=== PATIENT | female | born 1985 | race Caucasian/White ===

== ENCOUNTER 2017-08-24 19:45 | Observation (INO) | payer OTHER ==
[~2017-08-24] VITALS: Ht 170.2 cm; Wt 82.6 kg
[2017-08-24 20:47] VITALS: BP_SYST 141
== END 2017-08-24 20:40 | disposition home or self-care (01) ==
LOC: SPU 19:45
PROVIDERS: ADMIT Obstetrics & Gynecology; ATTEND Obstetrics & Gynecology
DX: O62.9 Abnormality of forces of labor, unspecified (principal); Z3A.39 39 weeks gestation of pregnancy
CPT/HCPCS: G0378

== ENCOUNTER 2017-08-25 01:30 | Inpatient (IN) | payer OTHER ==
[~2017-08-25] VITALS: Ht 172.7 cm; Wt 83.0 kg
[2017-08-25] MEDS ORDERED: LR 1,000 ML IV ONE (01:45)
[2017-08-25] MEDS ORDERED: OXYTOCIN/NORMAL SALINE 1,000 ML IV SCH ×2 (01:45→12:02)
[2017-08-25] MEDS ORDERED: TERBUTALINE SULFATE 1 MG/ML VIAL SUBCUT ONE (01:45)
[2017-08-25] MEDS ORDERED: NALBUPHINE HCL 10 MG/ML AMP IVP PRN (01:45)
[2017-08-25] MEDS ORDERED: LR 1,000 ML IV SCH (01:45)
[2017-08-25 01:54] VITALS: BP_SYST 146
[2017-08-25 02:14] LABS: BASOPHILS % (AUTO) 0.1 % (0.0-2.0); EOSINOPHILS # (AUTO) 0.2 K/uL (0.0-0.4); EOSINOPHILS % (AUTO) 1.3 % (0.0-4.0); HEMATOCRIT 39.3 % (36-48); HEMOGLOBIN 13.5 g/dL (12.0-16.0); LYMPHOCYTES # (AUTO) 1.5 K/uL (1.0-5.5); LYMPHOCYTES % (AUTO) 10.9 % (20.5-51.5); MEAN CORPUSCULAR HEMOGLOBIN 32 pg (27-31); MEAN CORPUSCULAR HGB CONC 34 % (32-36); MEAN CORPUSCULAR VOLUME 94 fL (79.0-98.0); MONOCYTES % (AUTO) 7.2 % (1.7-9.3); NEUTROPHILS # (AUTO) 10.9 K/uL (1.8-7.7); NEUTROPHILS % (AUTO) 80.5 % (40.0-70.0); PLATELET COUNT (AUTO) 129 K/uL (130-430); RED BLOOD CELL COUNT(AUTO) 4.18 MIL/uL (4.2-6.2); RED CELL DISTRIBUTION WIDTH 12.2 % (9.0-15.0); WHITE BLOOD COUNT (AUTO) 13.6 K/uL (4.8-10.8)
[2017-08-25] MEDS ORDERED: FENT2mCg/mL-ROPIVA0.2%/NS EPID 150 ML EP ONE (02:50)
[2017-08-25] MEDS ORDERED: FENT2mCg/mL-ROPIVA0.2%/NS EPID 150 ML EP SCH (02:50)
[2017-08-25] MEDS ORDERED: ACETAMINOPHEN 325 MG TABLET ONE (10:14)
[2017-08-25] MEDS ORDERED: CLINDAMYCIN 900 MG in D5W 100 ML IV SCH (10:15)
[2017-08-25] MEDS ORDERED: CLINDAMYCIN 900 mg/50mL D5W 50 ML IV ONE (10:15)
[2017-08-25] MEDS ORDERED: ACETAMINOPHEN 325 MG TABLET PO PRN ×2 (10:15→12:15)
[2017-08-25] MEDS ORDERED: OXYTOCIN/NORMAL SALINE 1,000 ML IV ONE (12:02)
[2017-08-25] MEDS ORDERED: RHO(D) IMMUNE GLOBULIN/MALTOSE 1500 UNITS/1.3 ML (WINHRO) IM PRN (12:15)
[2017-08-25] MEDS ORDERED: LANOLIN 7 GM OINT. TP PRN (12:15)
[2017-08-25] MEDS ORDERED: OXYCODONE/ACETAMINOPHEN 5-325 TABLET PO PRN ×2 (12:15)
[2017-08-25] MEDS ORDERED: DOCUSATE SODIUM 100 MG CAPSULE PO PRN (12:15)
[2017-08-25] MEDS ORDERED: HYDROCORTISONE 0.5%, 28.35 GM TOPICAL CREAM TP PRN (12:15)
[2017-08-25] MEDS ORDERED: METHYLERGONOVINE MALEATE 0.2 MG TABLET PO PRN (12:15)
[2017-08-25] MEDS ORDERED: DERMOPLAST SPRAY TP PRN (12:15)
[2017-08-25] MEDS ORDERED: GLYCERIN/WITCH HAZEL (TUCKS PADS) TP PRN (12:15)
[2017-08-25] MEDS ORDERED: MEASLES,MUMPS&RUBELLA VACC/PF 12500 UNIT/0.5 ML VIAL SUBQ PRN (12:15)
[2017-08-25] MEDS ORDERED: ANUSOL 1 EA SUPP.RECT (PREPARATION H) RC PRN (12:15)
[2017-08-25] MEDS ORDERED: SENNOSIDES/DOCUSATE SODIUM 1 TAB TABLET(SENOKOT-S) PO PRN (12:15)
[2017-08-25] MEDS ORDERED: MINERAL OIL 30 ML UDC PO ONE (15:28)
[2017-08-25] MEDS: IBUPROFEN 600 MG TABLET PO SCH ×2 (17:28→23:59)
[2017-08-25] MEDS ORDERED: TEMAZEPAM 15 MG CAPSULE PO PRN (21:00)
[2017-08-26] MEDS: IBUPROFEN 600 MG TABLET PO SCH ×2 (06:16→12:08)
[2017-08-26 06:31] LABS: HEMATOCRIT 35.7 % (36-48); HEMOGLOBIN 12.4 g/dL (12.0-16.0)
== END 2017-08-26 13:45 | disposition home or self-care (01) | DRG 775 ==
LOC: SPU 01:30
PROVIDERS: ADMIT Obstetrics & Gynecology; ATTEND Obstetrics & Gynecology
PROC: 10E0XZZ Delivery of Products of Conception, External Approach (ICD-10-PCS; principal; 2017-08-25)
PROC: 0KQM0ZZ Repair Perineum Muscle, Open Approach (ICD-10-PCS; 2017-08-25)
PROC: 3E0R3BZ Introduction of Anesthetic Agent into Spinal Canal, Percutaneous Approach (ICD-10-PCS; 2017-08-25)
PROC: 00HU33Z Insertion of Infusion Device into Spinal Canal, Percutaneous Approach (ICD-10-PCS; 2017-08-25)
DX: O41.1230 Chorioamnionitis, third trimester, not applicable or unspecified (principal); O69.81X0 Labor and delivery complicated by cord around neck, without compression, not applicable or unspecified; O70.1 Second degree perineal laceration during delivery; Z3A.39 39 weeks gestation of pregnancy; Z37.0 Single live birth
CPT/HCPCS: 36415; 85018-TC; 85025; 86592; 86886; 86900; 86901; J2590; J3010; J3490; J7060; J7120